=== PATIENT | female | born 1975 | race American Indian/Alaskan Native ===

== ENCOUNTER 2016-04-06 10:02 | Outpatient (CLI) | payer OTHER ==
--- NOTE | 2016-04-08 09:00 | Ultrasound Report ---
TARGETED LEFT BREAST ULTRASOUND: HISTORY: Palpable left breast mass. The patient's prior mammogram is not currently available for correlation. FINDINGS: Examination of the area of palpable abnormality demonstrates a dilated subareolar duct containing a small linear echogenic region which is dependent, probably representing debris or inspissated material. No evidence of a mass lesion is seen. IMPRESSION: Dilated duct containing echogenic material with no suspicious sonographic features. BI-RADS code: 0. After consultation with Dr. Moody, MRI of the breasts was ordered to further investigate the palpable mass. BI-RADS CATEGORY: 0 = Needs additional imaging evaluation ACR BI-RADS MAMMOGRAPHIC CODES: 0 = Needs additional imaging evaluation; 1 = Negative; 2 = Benign; 3 = Probably benign; 4 = Suspicious; 5 = Malignant; 6 = Known biopsy-proven malignancy COMMENT: 1. Dense breast tissue, i.e., adenosis, fibrocystic changes, etc., may obscure an underlying neoplasm. 2. Approximately 10% of cancers are not detected with mammography. 3. A negative mammography report should not delay biopsy if a clinically suspicious mass is present.
== END 2016-04-06 10:03 | disposition home or self-care (01) ==
LOC: SPVWC 10:02
PROVIDERS: ATTEND Surgery
DX: N63 Unspecified lump in breast (principal)

== ENCOUNTER 2016-04-12 09:02 | Outpatient (CLI) | payer OTHER ==
--- NOTE | 2016-04-12 14:50 | Magnetic Resonance Report ---
BILATERAL BREAST MRI WITHOUT AND WITH CONTRAST: 04/12/16 09:02:00 CLINICAL: Left nipple retraction COMPARISON: [facility] 07/22/15 mammogram. TECHNIQUE: Axial 1.0-mm T1 without, axial high resolution 2.0-mm T2 and axial 1.0-mm dynamic Vibrant high-resolution postcontrast T1 fat saturation sequences on a 1.5 Nathalie magnet. The examination was performed with an 8 channel dedicated [place] breast coil. Post processing with CAD and subtraction was performed on an [employer] workstation. 18.0 cc of Multihance was injected without incident for the contrast portion of the exam. Consent was obtained prior to the administration of the contrast. FINDINGS: Right: Mild background parenchymal enhancement. No mass or suspicious enhancement. No suspicious lymph nodes. Left: Mild background parenchymal enhancement. The left nipple is inverted but there is no associated mass. No mass or suspicious enhancement. No suspicious lymph nodes. IMPRESSION: Benign left nipple inversion. Negative right breast. BI-RADS 2 -- Benign
== END 2016-04-12 09:03 | disposition home or self-care (01) ==
LOC: SPVIMAG 09:02
PROVIDERS: ATTEND Surgery
DX: N64.53 Retraction of nipple (principal)
CPT/HCPCS: 0159T; A9577; C8908; 77059